=== PATIENT | male | born 1970 | race Caucasian/White ===

== ENCOUNTER 2018-07-29 05:52 | Day surgery (SDC) | payer OTHER ==
[2018-07-29] MEDS ORDERED: SEVOFLURANE 15 MIN (07:00)
[2018-07-29] MEDS ORDERED: NEOSTIGMINE 3 MG/3 ML SYRINGE ×2 (07:27→08:33)
[2018-07-29] MEDS ORDERED: LIDOCAINE 2% (SDV) 5 ML INJ (07:27)
[2018-07-29] MEDS ORDERED: ROCURONIUM 50 MG INJ (07:27)
[2018-07-29] MEDS ORDERED: SUCCINYLCHOLINE CHLORIDE 100 MG/5 ML SYG IV (07:27)
[2018-07-29] MEDS ORDERED: PROPOFOL 20 ML (07:27)
[2018-07-29] MEDS ORDERED: GLYCOPYRROLATE 0.4 MG INJ ×2 (07:27→08:33)
[2018-07-29] MEDS ORDERED: CIPROFLOXACIN 400MG/D5W 200 ML (07:34)
[2018-07-29] MEDS: IOHEXOL 300MG/ML 30 ML BTL (08:15)
[2018-07-29] MEDS ORDERED: METOCLOPRAMIDE 10 MG INJ IV (08:30)
[2018-07-29] MEDS ORDERED: FENTAnyl 50 MCG/ML VIAL IV ×2 (08:30)
[2018-07-29] MEDS ORDERED: hydrALAzine 20 MG INJ IV (08:30)
[2018-07-29] MEDS ORDERED: DIPHENHYDRAMINE 50 MG INJ IV (08:30)
[2018-07-29] MEDS ORDERED: MEPERIDINE 25 MG INJ IV (08:30)
[2018-07-29] MEDS ORDERED: MIDAZOLAM 1 MG/ML 2 ML INJ IV (08:30)
[2018-07-29] MEDS ORDERED: HYDROmorphONE 1 MG/5 ML IV SYRINGE IV ×2 (08:30)
[2018-07-29] MEDS ORDERED: OXYCODONE/ACETAMINOPHEN (5/325) TAB PO (08:30)
[2018-07-29] MEDS ORDERED: EPHEDrine SULFATE 50 MG/5 ML SYG IV (08:30)
[2018-07-29] MEDS ORDERED: LABETALOL HCL 20MG INJ IV (08:30)
[2018-07-29] MEDS: HYDROmorphONE 1 MG/5 ML IV SYRINGE IV (09:22)
[2018-07-29] MEDS: FENTAnyl 50 MCG/ML VIAL IV (09:22)
[2018-07-29] MEDS: ONDANSETRON 4 MG INJ IV (09:48)
[2018-07-29] MEDS: OXYCODONE/ACETAMINOPHEN (5/325) TAB PO (10:17)
== END 2018-07-29 11:32 | disposition home or self-care (01) ==
LOC: SDS 05:52
DX: N20.0 Calculus of kidney (principal)
CPT/HCPCS: 52356